=== PATIENT | male | born 1965 | race Caucasian/White ===

== ENCOUNTER 2018-10-22 13:28 | Emergency (ER) | payer OTHER ==
[~2018-10-22] VITALS: Ht 185.4 cm; Wt 104.3 kg
[~2018-10-22 13:28] MED LIST: NORVASC5 MG
[2018-10-22] MEDS ORDERED: COZAAR25 MG (13:55)
== END 2018-10-22 18:11 | disposition home or self-care (01) ==
LOC: ER 13:28
DX: R53.1 Weakness (principal); E87.1 Hypo-osmolality and hyponatremia